=== PATIENT | female | born 2000 | race Caucasian/White ===

== ENCOUNTER 2024-10-06 19:42 | Emergency (ER) | payer OTHER ==
[~2024-10-06] VITALS: Ht 185.4 cm; Wt 70.3 kg
== END 2024-10-06 22:32 | disposition home or self-care (01) ==
LOC: ER 19:43
DX: O20.8 Other hemorrhage in early pregnancy (principal); Z3A.01 Less than 8 weeks gestation of pregnancy

== ENCOUNTER 2025-06-24 12:32 | Outpatient (CLI) | payer OTHER | END 2025-06-24 12:38 | disposition home or self-care (01) | LOC: PRENATAL 12:32 | PROVIDERS: ATTEND Obstetrics & Gynecology Maternal & Fetal Medicine | DX: O36.80X0 Pregnancy with inconclusive fetal viability, not applicable or unspecified (principal); Z36.82 Encounter for antenatal screening for nuchal translucency; O36.1910 Maternal care for other isoimmunization, first trimester, not applicable or unspecified; Z3A.11 11 weeks gestation of pregnancy ==